=== PATIENT | female | born 1970 | race Caucasian/White ===

== ENCOUNTER → 2019-06-24 | Outpatient (CLI) | payer SELFPAY ==
[2019-06-25 09:58] LABS: Candida species (DNA Probe) Negative (NEGATIVE); G. vaginalis (DNA Probe) Positive (NEGATIVE); T. vaginalis (DNA Probe) Negative (NEGATIVE)
[2019-06-28 15:07] LABS: HPV 16 Negative (Negative); HPV 18 Negative (Negative); HPV OTHER HR TYPES Positive (Negative)
== END | disposition home or self-care (01) ==
LOC: LAB EV 17:15 → LAB SHORT 17:15
PROVIDERS: Family Medicine
DX: Z01.419 Encounter for gynecological examination (general) (routine) without abnormal findings (principal)
CPT/HCPCS: 87480; 87510; 87624; 87625; 87660; G0145

== ENCOUNTER 2022-08-29 08:14 | Day surgery (SDC) | payer OTHER ==
[~2022-08-29] VITALS: Ht 167.6 cm; Wt 66.4 kg
--- NOTE | 2022-08-29 10:49 | NUR ---
08/29/22 1049 MITZY GARCIA 0.15MG OF EPI ADDED TO 30MLS OF ROPIVACAINE 0.5% TO CREATE A LOCAL SOLUTION OF ROPIVACAINE 0.5% WITH EPI 1:200,000. LOCAL POURED ONTO STERILE FIELD FOR USE DURING CASE.
--- NOTE | 2022-08-29 11:57 | NUR ---
08/29/22 1157 Tiffany Mojica PT C/O OF 06/23 PAIN. TEARFUL. MEDICATED WTIH FENTANYL WITH IMMEDIATE RELIEF. PT TO RECLINER WITH MINIMAL DIFFICULTY. NAUSEA REPORTED IN PACU RESOLVED WITH ZOFRAN 4MG IVP. PT DENIES AT THIS TIME. WILL CONTINUE TO MONITOR FOR PAIN. VSS.
== END 2022-08-29 12:49 | disposition home or self-care (01) ==
LOC: ORSCSDS 08:14
PROVIDERS: Podiatrist Foot & Ankle Surgery
PROC: 0LQW0ZZ Repair Left Foot Tendon, Open Approach (ICD-10-PCS; principal; 2022-08-29 09:45)
PROC: 0LBT0ZZ Excision of Left Ankle Tendon, Open Approach (ICD-10-PCS; principal; 2022-08-29 09:45)
DX: M76.72 Peroneal tendinitis, left leg (principal); M65.9 Synovitis and tenosynovitis, unspecified; M25.572 Pain in left ankle and joints of left foot; E03.9 Hypothyroidism, unspecified
CPT/HCPCS: J0171; J0690; J1100; J1885; J2250; J2405; J2704; J2795; J3010

== ENCOUNTER 2024-09-17 18:59 | Emergency (ER) | payer OTHER ==
[~2024-09-17] VITALS: Ht 170.2 cm; Wt 65.8 kg
[2024-09-17 19:40] VITALS: BP 173/90
[2024-09-17] MEDS ORDERED: Oxymetazoline 0.05% Nasal Relief Spray 15mL BTL ONE (19:50)
[2024-09-17] MEDS ORDERED: Ibuprofen 600 MG Tab PO ONE (21:20)
== END 2024-09-17 21:35 | disposition home or self-care (01) ==
LOC: ER 18:59
DX: R04.0 Epistaxis (principal); Z88.6 Allergy status to analgesic agent
CPT/HCPCS: 30901; 99283-25; A9270